=== PATIENT | female | born 2000 | race Caucasian/White ===

== ENCOUNTER 2022-06-08 22:06 | Emergency (ER) | payer SELFPAY ==
[2022-06-08] MEDS ORDERED: Ondansetron 4 MG/2 ML SDV IVPUSH ONE (22:56)
[2022-06-08] MEDS ORDERED: HYDROmorphone 1 MG/ML Syringe IVPUSH STA (22:56)
[2022-06-08] MEDS ORDERED: Sodium Chloride 0.9% 1,000 ML IV SCH (23:00)
[2022-06-09] MEDS ORDERED: Iopamidol 612 MG/ML 100 ML Bottle IVPUSH ONE (01:43)
[2022-06-09] MEDS ORDERED: Ibuprofen 600 MG Tab PO ONE (01:52)
== END 2022-06-09 02:06 | disposition home or self-care (01) ==
LOC: JD.ED 22:06
DX: N83.201 Unspecified ovarian cyst, right side (principal); Z87.891 Personal history of nicotine dependence
CPT/HCPCS: 36415; 74177; 80053; 81001; 81025; 85007; 85027; 96361; 96374; 96375; 99284; A9270; J1170; J2405; J7030; Q9967